=== PATIENT | female | born 1945 ===

== ENCOUNTER 2019-03-26 10:30 | Outpatient (RCR) | payer MEDICARE, MEDICAID, SELFPAY | END 2019-04-14 00:01 | LOC: WOUND 10:30 | PROVIDERS: Family Provider Internal Medicine; Visit Provider Nurse Practitioner Family | DX: S81.801A Unspecified open wound, right lower leg, initial encounter (principal); X58.XXXA Exposure to other specified factors, initial encounter; L97.419 Non-pressure chronic ulcer of right heel and midfoot with unspecified severity ==